=== PATIENT | female | born 1995 | race Caucasian/White ===

== ENCOUNTER 2019-12-22 15:39 | Emergency (ER) | payer OTHER, SELFPAY ==
[2019-12-22 15:51] VITALS: BP 128/78; PULSE 87; RESP 16; TEMP 36.4; O2SAT 95; BMI 21.0
--- NOTE | 2019-12-22 16:56 | US_ITS ---
EXAMINATION: ULTRASOUND PELVIC, COMPLETE CLINICAL INFORMATION: Left-sided pain. COMPARISON: None. TECHNIQUE: Transvaginal: Used to better visualize pelvic structures Transabdominal: Not adequate for complete visualization Spectral Doppler and color Doppler exam was utilized. LMP: Current FINDINGS: UTERUS: Unremarkable. Uterus measures 6.6 x 3.4 x 3.7 cm. The endometrial thickness is 0.2 cm ADNEXA: Ovarian vascularity:Doppler demonstrates both arterial and venous vascular flow in the right and left ovary. No evidence of ovarian torsion. Right Ovary: 2.4 x 2.4 x 1.6 cm. Volume 5 mL Left Ovary: There is a corpus luteum cyst in left ovary measuring 1.6 cm. 4.7 x 1.2 x 1.5 cm. Volume 4 mL Cul-de-sac: No Fluid US/US pelvic complete IMPRESSION: Normal ultrasound of the pelvis.
--- NOTE | 2019-12-22 16:56 | US_ITS ---
EXAMINATION: ULTRASOUND PELVIC, COMPLETE CLINICAL INFORMATION: Left-sided pain. COMPARISON: None. TECHNIQUE: Transvaginal: Used to better visualize pelvic structures Transabdominal: Not adequate for complete visualization Spectral Doppler and color Doppler exam was utilized. LMP: Current FINDINGS: UTERUS: Unremarkable. Uterus measures 6.6 x 3.4 x 3.7 cm. The endometrial thickness is 0.2 cm ADNEXA: Ovarian vascularity:Doppler demonstrates both arterial and venous vascular flow in the right and left ovary. No evidence of ovarian torsion. Right Ovary: 2.4 x 2.4 x 1.6 cm. Volume 5 mL Left Ovary: There is a corpus luteum cyst in left ovary measuring 1.6 cm. 4.7 x 1.2 x 1.5 cm. Volume 4 mL Cul-de-sac: No Fluid US/US pelvic ovarian doppler IMPRESSION: Normal ultrasound of the pelvis.
--- NOTE | 2019-12-22 16:57 | US_ITS ---
EXAMINATION: ULTRASOUND PELVIC, COMPLETE CLINICAL INFORMATION: Left-sided pain. COMPARISON: None. TECHNIQUE: Transvaginal: Used to better visualize pelvic structures Transabdominal: Not adequate for complete visualization Spectral Doppler and color Doppler exam was utilized. LMP: Current FINDINGS: UTERUS: Unremarkable. Uterus measures 6.6 x 3.4 x 3.7 cm. The endometrial thickness is 0.2 cm ADNEXA: Ovarian vascularity:Doppler demonstrates both arterial and venous vascular flow in the right and left ovary. No evidence of ovarian torsion. Right Ovary: 2.4 x 2.4 x 1.6 cm. Volume 5 mL Left Ovary: There is a corpus luteum cyst in left ovary measuring 1.6 cm. 4.7 x 1.2 x 1.5 cm. Volume 4 mL Cul-de-sac: No Fluid US/US transvaginal IMPRESSION: Normal ultrasound of the pelvis.
[2019-12-22] MEDS: 0.9 % Sodium Chloride 1,000 ML 1000 ML IV (17:11)
[2019-12-22 17:17] LABS: MANUAL DIFF FLAG NO
[2019-12-22 17:21] LABS: Basophils Percent Auto 0.3 % (0-2); Eosinophils Absolute Auto 0.2 X10*3/uL (0.0-0.4); Eosinophils Percent Auto 2.7 % (0-4); Hematocrit 35.4 % (37-47); Hemoglobin 10.6 g/dl (12.0-16.0); Imm Gran Abs Auto 0.02 X10*3/uL (0.00-0.03); Imm Gran Pct Auto 0.3 % (0.0-0.4); Lymphocytes Absolute Auto 1.8 X10*3/uL (1.2-4.9); Mean Corpuscular HGB Conc 29.9 g/dl (31.0-35.0); Mean Corpuscular Hemoglobin 22.6 pg (27.0-33.0); Mean Corpuscular Volume 75.5 fL (80-98); Mean Platelet Volume 12.1 fL (9.4-12.3); Monocytes Absolute Auto 0.7 X10*3/uL (0.1-1.2); Monocytes Percent Auto 10.5 % (2-11); Neutrophils Absolute Auto 4.1 X10*3/uL (2.0-8.3); Neutrophils Percent Auto 60.2 % (45-73); Platelet Count 256 X10*3/uL (160-400); Red Blood Count 4.69 X10*6/uL (4.20-5.50); Red Cell Distribution Width 13.6 % (11.0-16.0); White Blood Count 6.7 X10*3/uL (4.8-10.8)
[2019-12-22 17:23] LABS: Glucose Urine UA NEG (NEG); Leukocyte Esterase Urine NEG (NEG); Nitrite Urine NEG (NEG); Specific Gravity - Urine 1.015 (1.005-1.025); Urine Blood 3+ (NEG); Urine Ketones NEG (NEG); Urine Protein NEG (NEG-TRACE)
[2019-12-22 17:43] LABS: Appearance Urine CLEAR; Color Urine YELLOW
[2019-12-22 17:45] LABS: Alanine Aminotransferase 12 U/L (0-31); Albumin Level 4.2 g/dL (3.5-5.0); Alkaline Phosphatase 38 U/L (39-117); Anion Gap 10 (12-20); Aspartate Amino Transferase 19 U/L (5-31); Bilirubin Total 0.5 mg/dL (0.0-1.0); Blood Urea Nitrogen 13 mg/dL (9-16); Calcium 8.7 mg/dL (8.4-10.2); Carbon Dioxide 27 mmol/L (22-29); Chloride 106 mmol/L (96-108); Creatinine Clr Calc Pharmacy 96.6; Estimated Glomerular Filt Rate > 60; Glucose Random 90 mg/dL (60-115); Potassium 4.2 mmol/l (3.3-5.1); Sodium 139 mmol/L (135-145); Total Protein 6.8 g/dL (6.5-8.0)
[2019-12-22 17:49] LABS: Squamous Epithelial Cell Urine 4+ /LPF; WBC Urine 0-2 /HPF (0-4)
[2019-12-22 17:51] LABS: UPreg QC Valid YES; Urine Pregnancy NEGATIVE (NEGATIVE)
[2019-12-22 18:08] VITALS: RESP 16
--- NOTE | 2019-12-22 18:53 | PC.NURSE ---
Report taken from janette Nicolas RN resuming care.
--- NOTE | 2019-12-22 19:06 | PC.NURSE ---
Pt found sitting upright in bed, requesting medication for 8/10 pain to pelvis. Pt inquiring about her U/S results, asking to have her IV removed so she can leave. RETAIL SERVICE TECHNICIAN aware.
[2019-12-22 19:10] VITALS: BP 129/68; PULSE 86; RESP 16; O2SAT 99
[2019-12-22] MEDS: Ketorolac Tromethamine 30 MG/ML VIAL IVPUSH (19:16)
--- NOTE | 2019-12-22 19:16 | PC.NURSE ---
Pt medicated with Toradol per EMAR. Pt requesting IV removed, FAMILY CONSUMER SCIENCE TEACHER aware and agreeable.
--- NOTE | 2019-12-22 19:42 | ED.FEMALEGU ---
HPI - Female Genitourinary General Chief complaint: Vaginal Bleeding Stated complaint: Abd Pain Time Seen by Provider: 12/22/19 16:56 Source: patient Mode of arrival: ambulatory Limitations: no limitations History of Present Illness HPI Narrative: Having pelvic cramping for the past 2 days on her menstrual cycle. States she usually has menstrual cramping but today with a little more intense. MD elicited complaint: pelvic pain Severity: moderate Female Urogenital Radiation: Non-Radiating and Suprapubic Quality of pain: cramping Consistency: intermittent Vaginal discharge: none Vaginal bleeding: none Urinary symptoms: Dysuria Relieving factors: none Associated symptoms: denies other symptoms Treatment prior to arrival: none Sexual activity: No Patient : No Related Data Previous Rx's Medication Instructions Recorded ibuprofen 800 mg PO Q8H PRN #30 tab 12/22/19 Allergies Allergy/AdvReac Type Severity Reaction Status Date / Time No Known Allergies Allergy Verified 12/22/19 16:56 Review of Systems Review of Systems: Constitutional: No Weight loss, No Fever, No Chills, No Night Sweats, No Fatigue, No Malaise ENT/Mouth: No Hearing loss, No Ear Pain, No Nasal Congestion, No Sinus Pain, No Hoarseness, No sore throat, No Rhinorrhea, No Swallowing Difficulty Eyes: No Eye Pain, No Swelling, No Redness, No Foreign Body, No Discharge, No Vision Changes Cardiovascular: No Chest Pain, No SOB, No Dyspnea on Exertion, No Orthopnea, No Edema, No Palpitations Respiratory: No Cough, No Sputum, No Wheezing, No Smoke Exposure, No Dyspnea . Gastrointestinal: No Nausea, No Vomiting, No Diarrhea, No Constipation, + Pelvic pain left side, No Hematochezia, No Melena Genitourinary: no irregular bleeding, No Dysuria, No Urinary Frequency, No Hematuria, No Urinary Incontinence, No Urgency, No Flank Pain, No Urinary Flow Changes, No Hesitancy Musculoskeletal: No joint pain, No Myalgias, No Joint Swelling Skin: No Skin Lesions, No rash Neuro: No Weakness, No Numbness, No Paresthesias, No Loss of Consciousness, No Dizziness, No Headache Psych: No Anxiety/Panic, No Depression Heme/Lymph: No Bruising, No Bleeding,No Lymphadenopathy Endocrine: No Polyuria, No Polydipsia, No Temperature Intolerance Yes all other systems are reviewed and are negative [facility] Past Medical History Attestation statement: The following information was validated with the patient. Social History Social History Alcohol intake: never Smoked in Last 30 Days: No Use of substances other than those prescribed or required for medical reasons: No Advance Directives: No Advance Directives Information Provided: No Physical Exam Vital Signs: Vital Signs: Last Vital Signs Temp 97.6 F 12/22/19 15:51 Pulse 86 12/22/19 19:10 Resp 16 12/22/19 19:10 BP 129/68 12/22/19 19:10 Pulse Ox 99 12/22/19 19:10 Body Mass Index 21.0 Reviewed Const: General: cooperative and healthy appearing; No acute distress or intoxicated appearing Nutritional Appearance: average body habitus Orientation/consciousness: patient oriented x3 HENMT: Head: Yes normal to inspection Ears: hearing grossly normal bilaterally Eyes: General: appearance normal, both eyes and all related structures Visual Worthington: normal visual worthington by confrontation Neck: Neck: Yes normal visual inspection and No tender Thyroid: Thyroid normal Chest: Chest palpation & inspection: normal inspection of the chest Resp: Effort & Inspection: normal respiratory effort Cardio: Jugular venous distension: no JVD GI: Inspection: Yes normal to inspection Percussion: Yes normal to percussion Auscultation: normal bowel sounds : General: Yes no CVA tenderness Back/Spine/Pelvis: Back: no CVA tenderness Skin: General skin exam: no rashes or lesions noted Neuro: General: patient oriented x3 Extrem: General: Yes normal to inspection Course Course Course Narrative: Labs overall stable. UA negative for or infection. H&H stable. Ultrasound no evidence of ovarian cyst/torsion. Pain mostly on the left side. No GI symptoms otherwise. A/P consistent with dysmenorrhea patient will be discharged home with clear precaution return follow-up instructions. Given short course for NSAIDs. Agreeable and stable for discharge. MDM - Female Genitourinary Differential Diagnosis Differential diagnosis: Likely urinary tract infection, ovarian cyst and dysmenorrhea; Unlikely bacterial vaginosis, trichomoniasis, cervicitis, vaginitis, ruptured ovarian cyst, cyst of Bartholin's gland and cystitis Medical Records Attestation: I reviewed the patient's medical records. Lab Data Attestation: I reviewed the patient's lab results. Result diagrams: 12/22/19 17:11 12/22/19 17:11 Labs: Lab Results 12/22/19 12/22/19 12/22/19 Range/Units 17:11 17:11 17:11 WBC 6.7 (4.8-10.8) X10*3/uL RBC 4.69 (4.20-5.50) X10*6/uL Hgb 10.6 L (12.0-16.0) g/dl Hct 35.4 L (37-47) % MCV 75.5 L (80-98) fL MCH 22.6 L (27.0-33.0) pg MCHC 29.9 L (31.0-35.0) g/dl RDW 13.6 (11.0-16.0) % Plt Count 256 (160-400) X10*3/uL MPV 12.1 (9.4-12.3) fL Immature Gran % (Auto) 0.3 (0.0-0.4) % Neut % (Auto) 60.2 (45-73) % Lymph % (Auto) 26.0 (20-40) % Ogle % (Auto) 10.5 (2-11) % Eos % (Auto) 2.7 (0-4) % Baso % (Auto) 0.3 (0-2) % Lymph # (Auto) 1.8 (1.2-4.9) X10*3/uL Ogle # (Auto) 0.7 (0.1-1.2) X10*3/uL Eos # (Auto) 0.2 (0.0-0.4) X10*3/uL Baso # (Auto) 0.0 (0.0-0.2) X10*3/uL Abs Immat Gran (auto) 0.02 (0.00-0.03) X10*3/uL Absolute Neuts (auto) 4.1 (2.0-8.3) X10*3/uL Absolute Nucleated RBC 0.000 (0.0-0.012) X10*3/uL Nucleated RBC % (auto) 0.0 (0.0-0.2) /100WBC Sodium 139 (135-145) mmol/L Potassium 4.2 (3.3-5.1) mmol/l Chloride 106 (96-108) mmol/L Carbon Dioxide 27 (22-29) mmol/L Anion Gap 10 L (12-20) BUN 13 (9-16) mg/dL Creatinine 0.71 (0.5-1.4) mg/dL Estim Creat Clear Calc 96.6 Estimated GFR > 60 Random Glucose 90 (60-115) mg/dL Calcium 8.7 (8.4-10.2) mg/dL Total Bilirubin 0.5 (0.0-1.0) mg/dL AST 19 (5-31) U/L ALT 12 (0-31) U/L Alkaline Phosphatase 38 L (39-117) U/L Total Protein 6.8 (6.5-8.0) g/dL Albumin 4.2 (3.5-5.0) g/dL Urine Color YELLOW Urine Appearance CLEAR Urine pH 7.0 (5.0-8.0) Ur Specific [place] 1.015 (1.005-1.025) Urine Protein NEG (NEG-TRACE) MG/DL Urine Glucose (UA) NEG (NEG) MG/DL Urine Ketones NEG (NEG) MG/DL Urine Blood 3+ H (NEG) Urine Nitrite NEG (NEG) Ur Leukocyte Esterase NEG (NEG) Urine RBC 1-4 (0) /HPF Urine WBC 0-2 (0-4) /HPF Ur Squamous Epith Cells 4+ /LPF Urine Bacteria NONE /LPF Urine Test NEGATIVE (NEGATIVE) Imaging Data Pelvic/ovarian Doppler ultrasound: Radiologist's impression: [place] [id number] Ultrasound Report Signed Patient: Cheryl Soria [facility]#: [id number] : 1995Acct:[id number] Age/Sex: 24 / FADM Date: 12/22/19 Loc: .ED Attending Dr: Ordering Physician: Jose C Ramirez NP Date of Service: 12/22/19 Procedure(s): US pelvic complete Accession Number(s): [id number] cc: Jose C Ramirez NP~ EXAMINATION: ULTRASOUND PELVIC, COMPLETE CLINICAL INFORMATION: Left-sided pain. COMPARISON: None. TECHNIQUE: Transvaginal: Used to better visualize pelvic structures Transabdominal: Not adequate for complete visualization Spectral Doppler and color Doppler exam was utilized. LMP: Current FINDINGS: UTERUS: Unremarkable. Uterus measures 6.6 x 3.4 x 3.7 cm. The endometrial thickness is 0.2 cm ADNEXA: Ovarian vascularity:Doppler demonstrates both arterial and venous vascular flow in the right and left ovary. No evidence of ovarian torsion. Right Ovary: 2.4 x 2.4 x 1.6 cm. Volume 5 mL Left Ovary: There is a corpus luteum cyst in left ovary measuring 1.6 cm. 4.7 x 1.2 x 1.5 cm. Volume 4 mL Cul-de-sac: No Fluid US/US pelvic complete IMPRESSION: Normal ultrasound of the pelvis. Dictated By:GUILLAUME CABRERA MD Signed By:<Electronically signed by GUILLAUME CABRERA MD in OV>12/22/19 1827 DD/ 1656 TD/TT: Loan Collector: CONY Discharge Plan Discharge Clinical Impression: Dysmenorrhea Patient Disposition: Home, Self-Care Instructions: Dysmenorrhea (ED) Prescriptions: New ibuprofen 800 mg tablet 800 mg PO Q8H PRN (Reason: pain) Qty: 30 RF: 0 Referrals: ED Physician,Generic [Physician] - 1 week (Primary care) Pelon Zhao MD [Physician] - 1 week
== END 2019-12-22 19:55 | disposition home or self-care (01) ==
PROVIDERS: Nurse Practitioner Primary Care; Emergency Provider Emergency Medicine
DX: N94.6 Dysmenorrhea, unspecified (principal); R30.0 Dysuria; R10.9 Unspecified abdominal pain; R10.2 Pelvic and perineal pain
CPT/HCPCS: 36415; 76830; 76856; 80053; 81001; 81025; 85025; 93975; 96361; 96374; 99284; J1885

== ENCOUNTER 2024-07-15 15:21 | Emergency (ER) | payer SELFPAY ==
--- OUTSIDE RECORDS SUMMARY | 2024-07-15 17:11 | XMS_ITS | Data Portability ---
Author Organization [place] - [facility] printed circuit boards beveler Wom, GC_Manlius Address [address] [place] [address] Assessment Encounter Date Assessment Date Assessment LastModified by Organization Details LastModified Time 04/23/2023 04/23/2023 Patient tolerated the procedure well. We discussed signs that need medical attention such as bleeding and infection. Again we discussed the 3 year limitation of the device. We discussed common side effects that typically resolve on their own such as bruising and breakthrough bleeding with her cycle She can call back if there are any questions. All questions answered. RTC in Feb for yearly as pap smear will be due or RTC sooner if needed. Not available 04/23/2023 16:47:03 12/10/2023 12/10/2023 Nexplanon palpable in arm Not available 12/10/2023 16:31:39 01/29/2024 01/29/2024 Patient tolerated the procedure well. We discussed signs that need medical attention such as bleeding and infection. We discussed signs which require evaluation like worsening pain/infection She can call back if there are any questions. All questions answered. [email or web address] Not available 01/29/2024 17:10:43 Plan of Treatment Reminders Order Date Submit Date Provider Last Modified By Organization Details Last Modified Time Details Appointments None recorded. Lab test, urine 2023 024 [email or web address] [facility] Marion LIAO [address] [place] [address] [place], , [address], 17:10:57 urinalysis, dipstick 2023 024 [email or web address] 5 [facility] Obfuadn PA, [address] [place] [address], [place], [address], 4 16:33:57 test, urine 2023 024 [email or web address] 5 _[facility] Kaylan PA, [address] [place] [address], [place], [address], 16:47:41 test, urine 2023 024 [email or web address] 5 [facility] Kaylan PA, [address] [place] [address], [place], [address], 13:14:11 Referral None recorded. Procedures None recorded. Surgeries None recorded. Imaging US, pelvis 2023 [email or web address] 5 Not available 13:08:08 Medication Orders Provera 10 mg tablet 2023 [facility]armacy #[id number], [address] [facility] [place], [address], 17:10:58 Sprintec (28) 0.25 mg-0.035 mg tablet 2023 [facility] #[id number], [address] [facility], [place], [address], 17:10:58 metronidazo le 500 mg tablet 2023 [facility]arm[facility] #[id number], [address] [facility], [place], [address], 16:33:26 ibuprofen 800 mg tablet 2023 [facility]Pharmacy #[id number], [address] [facility], [place], [address], 4 16:33:26 Nexplanon 68 mg subdermal implant 2023 024 5 [facility]/Pharmacy #[id number], [address] [facility] [place], [address], 16:47:39 Patient TargetsNo targets recorded. Patient InstructionsNo instructions recorded. Reason for Referral None Reported. Results Created Date Observation Date Name Description Value Unit Range Abnormal Flag Note LastModifiedBy Organization Detail LastModifiedTime 04/04/19 24 04/04/2023 pregn kimberley test, urine HCG negati ve Not Available [address] [place], [address], 04/04/2023 12:02:49 04/23/1904/23/2023 pregn kimberley test, urine HCG negati ve Not Available [address] [place], [address], 04/23/2023 15:35:20 12/10/19 24 12/10/2023 urina lysis , dipst ick Blood Negati ve Not Available [address] [place], [address], 12/10/2023 16:10:02 12/10/19 24 12/10/2023 urina lysis , dipst ick Protein Negati ve Not Available [address] [place], [address], 12/10/2023 16:10:02 12/10/1912/10/2023 urina lysis , dipst ick Nitrite negati ve Not Available [address] [place], [address], 12/10/2023 16:10:02 12/10/19 24 12/10/2023 urina lysis , dipst ick Glucose Negati ve Not Available [address] [place], [address], 12/10/2023 16:10:02 12/10/19 24 12/10/2023 urina lysis , dipst ick Leukocytes Negati ve Not Available [facility] [address] [place], [address], 12/10/2023 16:10:02 12/10/19 24 12/10/2023 urina lysis , dipst ick Appearance Clear Not Available _[facility] [address] [place], [address], 12/10/2023 16:10:02 12/10/19 24 12/10/2023 urina lysis , dipst ick Color Yellow Not Available _[facility] [address] [place], [address], 12/10/2023 16:10:02 01/29/20 24 01/29/2024 pregn kimberley test, urine HCG negati ve Not Available [facility] [address] [place], [address], 01/29/2024 12:26:11 01/03/20 24 US, amber [email or web address] No observ ation record ed. [email or web address] Not Available 2023 13:44:46 Result Notes None recorded. Procedures Surgical History Date Name Laterality Status Provider Name and Address Organization Details Recorded Time 01/29/20 Nexplanon removal_ecw completed Alphonse Stock [facility] printed [employer] be[employer] Wom 01/29/2024 12:26:10 04/23/19 24 Nexplanon insertion completed CLEMENTINE LIGHT MD [address] [place] [address],[address], [place], [address], [facility] printed [employer] be[employer] Wom 04/23/2023 16:46:30 02/20/19 24 Date of Last Pap Smear completed Elisa Mcdonald [facility] printed [employer] be[employer] Wom 04/04/2023 12:00:13 Tonsillectomy completed Janeen Dai [place] - [facility] printed circuit boards be[employer] Wom 04/23/2023 15:39:12 Imaging Results None recorded. Procedure Notes None recorded. Medical Equipment None Reported. Allergies No known drug allergies Medications Name Sig Start Date Stop Date Status Note LastModified by Organization Details LastModified Time tetracycl ine 500 mg capsule TAKE ONE TABLET BY MOUTH FOUR TIMES DAILY FOR TWO WEEKS 04/04 completed Not Available Not Available Not Available amoxicill in 500 mg capsule TAKE ONE CAPSULE BY MOUTH EVERY 8 HOURS FOR 10 DAYS active Not Available Not Available No t Available medroxypr ogesteron e 10 mg tablet Take 1 tablet every day by oral route for 14 days. active Not Available Not Available No t Available promethaz ine-DM 6.25 mg-15 mg/5 mL oral syrup TAKE 5 MLS BY MOUTH 4 TIMES DAILY NEEDED FOR COUGH active Not Available Not Available No t Available doxycycli ne hyclate 100 mg capsule TAKE 1 CAPSULE BY MOUTH IN THE MORNING AND 1 CAPSULE BEFORE BEDTIME active Not Available Not Available No t Available azithromy gillian 250 mg tablet TAKE 2 TABLETS BY MOUTH TODAY, THEN TAKE 1 TABLET DAILY FOR 4 DAYS DIRECTED active Not Available Not Available No t Available ibuprofen 800 mg tablet TAKE 1 TABLET BY MOUTH EVERY 8 HOURS NEEDED FOR PAIN MEDICA ID LIMITS EXCEEDED active Not Available Not Available No t Available fluconazo le 150 mg tablet TAKE 1 TABLET BY MOUTH ONCE EVERY 3 DAYS active Not Available Not Available No t Available clarithro mycin 500 mg tablet TAKE 1 TABLET TWICE DAILY UNTIL FINISHED . 04/04 completed Not Available Not Available Not Available fluconazo le 200 mg tablet TAKE 1 TABLET BY MOUTH IN THE MORNING FOR 3 DAYS active Not Available Not Available No t Available prednison e 20 mg tablet PLEASE SEE ATTACHED FOR DETAILED DIRECTIO NS active Not Available Not Available No t Available metronida zole 500 mg tablet TAKE 1 TABLET BY MOUTH TWICE A DAY FOR 7 DAYS active Not Available Not Available No t Available sulfameth oxazole 800 mg-trimet hoprim 160 mg tablet TAKE 1 TABLET BY MOUTH TWICE A DAY FOR 5 DAYS 04/04 completed Not Available Not Available Not Available peg-elect rolyte solution 420 gram oral solution TAKE 4000 ML(S) BY MOUTH DIRECTED 04/04 completed Not Available Not Available Not Available triamcino lone acetonide 0.1 % topical cream 04/04 completed Not Available Not Available Not Available famotidin e 20 mg tablet TAKE 1 TABLET BY MOUTH IN THE MORNING AND TAKE 1 TABLET AT BEDTIME . DO THIS FOR 7 DAYS. active Not Available Not Available No t Available cephalexi n 500 mg capsule TAKE 1 CAPSULE BY MOUTH EVERY DAY IN THE MORNING AND EVERY DAY AT BEDTIME. DO THIS FOR 10 DAYS active Not Available Not Available No t Available ferrous sulfate 325 mg (65 mg iron) tablet take 1 tablet (325 mg) by oral route 2 times per day 04/04 completed Prescrib ed at [facility] Not Available Not Available Not Available dexametha sone 4 mg tablet TAKE ONE TABLET BY MOUTH DAILY WITH BREAKFAS T FOR 2 DAYS 04/04 completed Not Available Not Available Not Available bismuth subsalicy late 262 mg chewable tablet CHEW AND SWALLOW 1 TABLET 4 TIMES DAILY. 04/04 completed Not Available Not Available Not Available omeprazol e 20 mg capsule,d elayed release TAKE ONE CAPSULE BY MOUTH TWICE DAILY 04/04 completed Not Available Not Available Not Available cefuroxim e axetil 500 mg tablet TAKE 1 TABLET BY MOUTH IN THE MORNING AND 1 TABLET BEFORE BEDTIME. DO THIS FOR 7 DAYS active Not Available Not Available No t Available methylpre dnisolone 4 mg tablets in a dose pack TAKE 6 TABLETS ON DAY 1 DIRECTED ON PACKAGE AND DECREASE BY 1 TAB EACH DAY FOR A TOTAL OF 6 DAYS active Not Available Not Available No t Available albuterol sulfate HFA 90 mcg/actua tion aerosol inhaler INHALE 2 PUFFS INTO THE LUNGS EVERY 4 HOURS NEEDED FOR WHEEZING active Not Available Not Available No t Available ondansetr on 4 mg disintegr ating tablet TAKE 1 TABLET BY MOUTH EVERY 8 HOURS NEEDED FOR NAUSEA active Not Available Not Available No t Available medroxypr ogesteron e 150 mg/mL intramusc ular suspensio n inject 1 millilit er (150 mg) by intramus cular route every 3 months for 84 days 01/21 completed Prescrib ed at [facility] Not Available Not Available Not Available Augmentin 500 mg-125 mg tablet take 1 tablet by oral route every 12 hours for 7 days. 03/28 completed Prescrib ed at Practice Not Available Not Available Not Available naproxen 500 mg tablet TAKE 1 TABLET BY MOUTH IN THE MORNING AND 1 TABLET IN EVENING. TAKE WITH MEALS NEEDED FOR PAIN active Not Available Not Available No t Available nitrofura ntoin monohydra te/macroc rystals 100 mg capsule TAKE ONE CAPSULE BY MOUTH IN THE MORNING AND ONE CAPSULE BEFORE BEDTIME. DO ALL THIS FOR 5 DAYS. active Not Available Not Available No t Available sodium fluoride 1.1 % dental paste BRUSH TWICE A DAY DIRECTED . DO NOT RINSE FOR 30 MINS AFTER USE 04/04 completed Not Available Not Available Not Available Nexplanon 68 mg subdermal implant Inject 1 implant by subcutan eous route. 2023 active Not Available Not Available Not Avai lable Estarylla 0.25 mg-0.035 mg tablet Take 1 tablet every day by oral route. active Not Available Not Available No t Available Vitals Date Recorded Body height Body mass index (BMI) Body weight Heart rate Systolic blood pressure Diastolic blood pressure Provider Name and Address Organization Details Last Updated DateTime 4 157.48 cm 22.1 kg/m2 02175.6 8 g 96 /min 120 mm[Hg] 82 mm[Hg] Elisa [facility] Wom 4 11:58:49 Date Recorded Body height Body mass index (BMI) Body weight Heart rate Systolic blood pressure Diastolic blood pressure Provider Name and Address Organization Details Last Updated DateTime 4 157.48 cm 22.7 kg/m2 07082.4 5 g 76 /min 114 mm[Hg] 69 mm[Hg] Janeen Dai [facility] Wom 4 16:26:48 Date Recorded Body height Body mass index (BMI) Body weight Heart rate Systolic blood pressure Diastolic blood pressure Provider Name and Address Organization Details Last Updated DateTime 4 157.48 cm 22.7 kg/m2 24296.4 5 g 86 /min 124 mm[Hg] 86 mm[Hg] Elisa [facility] printed circuit boards beveler Wom 4 16:09:36 Date Recorded Body height Body mass index (BMI) Body weight Heart rate Systolic blood pressure Diastolic blood pressure Provider Name and Address Organization Details Last Updated DateTime 4 157.48 cm 22.9 kg/m2 96119.4 8 g 91 /min 112 mm[Hg] 82 mm[Hg] Alphonse Stock [facility] printed circuit boards be[employer]er Wom 4 16:21:05 Social History Question Answer Notes LastModified by Organizat ion Details LastModified Time Tobacco Smoking Status Never Smoker Janeen mckinnon, [facility] printed circuit [employer] be[employer]er Wom 04/23/2023 15:39:04 Are You Sexually Active? Yes [email or web address] Information not available 04/23/2023 Sex: Female Functional Status Question Answer Note LastModified by Organizat ion Details LastModified Time Do you use any illicit or recreational drugs? No Information not available 04/23/2023 What is your level of alcohol consumption? None [email or web address] Information not available 04/23/2023 Mental Status None recorded. Family History Nothing Reported. Medical History Condition Response Anxiety/Depression Y Other N Problems N Kidney or Bladder Problems N Thyroid Problems N Lung Disease N Gestational Diabetes N Anemia Y Hematologic disorders N History of STI N Polycystic ovary syndrome N Diabetes N Hepatitis/Liver Disease N Infertility N Sickle Cell N History of abnormal pap N Cancer N [employer] Problems N Asthma N Endometriosis N High Cholesterol N Heart Disease N Miscarriage N Pre-Eclampsia N Hypertension N Osteoporosis N Gynecological History Statement/Question Response Date of Last Pap Smear 02/20/2023 Current Control Method Implant Flow Moderate Date of LMP 01/29/2024 Sexually Active? Y Obstetrics History GPAL:G 1 P 0 0 0 0 Type Value Multiple Births 0 Full Term 0 Induced 0 Spontaneous 0 Premature 0 Living 0 Ectopics 0 Total 1 Past Encounters Encounter ID Performer Location Encounter Start Date Encounter Closed Date Diagnosis/Indication Diagnosis SNOMED-CT Code Diagnosis ICD10 Code Diagnosis Note [id number] CLEMENTINE LIGHT MD [facility] [place] [address] 04/04/2023 11:49:28 04/04/2023 12:50:43 Gynecologic examination 24048052 Z01.419 Reassured that her test here was negative. Menorrhagia 665483020 N9 2.0 Wants to try Nexplanon. Counseled on side effects such as amenorrhea vs irregular bleeding. Pt to fill out insurance form today and return on her next cycle for placement. We discussed it is good for three years. Contracept ion care management 506951644 Z30.9 [id number] CLEMENTINE LIGHT MD [facility] [address] [place] [address] 04/23/2023 16:13:21 05/04/2023 15:44:28 Contraception care management 370917020 Z30.9 [id number] CELMENTINE LIGHT MD [facility] [place] [address] [place] [address] 12/10/2023 15:39:40 12/10/2023 16:46:01 Recurrent urinary tract infection 115099874 N39.0 Suspect interstiti al cystitis based on symptoms. Patient needs urology referral but they do not accept her insurance. She has a new job and will be getting new insurance soon. Recommende d she notify our office when that happens so we can complete a referral. Pain in pelvis 86368104 R10.2 Will obtain [employer] [place] Vaginitis 67487892 N76.0 [id number] CLEMENTINE LIGHT MD [facility] [address] [place] [address] 01/03/2024 16:01:42 01/04/2024 10:33:10 Pain in pelvis 56663254 R10.2 Will obtain [employer] [place] [id number] ARISTEO KOO MD [address] [place] [address] 01/29/2024 16:02:10 01/29/2024 17:06:37 Contraception care management 148200411 Z30.017 Abnormal u terine bleeding 7712616384 9100 N93.9 Health Concerns Section Related Observation LastModified by Organization Detai ls LastModified Time None Recorded Concern Status LastModified by Organization Details LastModified Time None Recorded Advance Directives Directive None Recorded Payers Encounter Date Sequence Insurance Name Policy Number Policy Ng Covered Member ID Ng Member ID Guarantor Name 04/04/2023 1 [facility] [place] (MEDICAID REPLACEMENT - [place]MO) Cheryl Soria [id number] Cheryl Soria 04/23/2023 1 [facility] [place] ([place]ICAID REPLAC[place] - [place]MO) Cheryl Soria [id number] Cheryl Soria 12/10/2023 1 MED[employer]- (MEDICAID) Cheryl Soria [id number] Cheryl Soria 01/03/2024 1 [facility] [place] (MEDICAID REPLACEMENT - HMO) DUC Soria [id number] Cheryl Soria 01/29/2024 1 [facility] (MEDICAID REPLACEMENT - HMO) DUC Soria [id number] Cherly Soria Notes Date Note Type Note Provider Name and Address Organization Details Recorded Time 04/04/2023 text/html Patient presents today to discuss control. At her last visit she decided she wanted to try depo. Her most recent period was heavy and she went to the ER. She was told there not to get the depo until she followed up. She also reports a positive test at home. The test in our office today was negative. Her LMP was 03/24/2023. Her test at the ER was also negative. She thinks she wants to try the Nexplanon. She had this before when she was a teenager but did not keep it very long. CLEMENTINE LIGHT MD [address] [place] [address],[address], [place], [address], [facility] printed circuit boards be[employer]er Wom 04/04/2023 13:03:24 04/23/2023 text/html Patient present today for Nexplanon insertion. She reported no change in her past medical history. She is not currently . We discussed the 3 year limitation of the device. We discussed the risk and benefit of the procedure which include- bleeding, infection, and small risk of migration. All questions answered and she would like to proceed. CLEMENTINE LIGHT MD [address] [place] [address],[address], [place], [address], [facility] printed circuit boards be[employer]er Wom 04/23/2023 16:47:42 12/10/2023 text/html Ms. Soria is here for multiple issues. She endorses arm pain where her Nexplanon is. She also endorses menstrual cramps but does not have a cycle. She also has left sided lower abdominal pain that comes and goes. She has a history of frequent UTIs and pain with urination. Her most recent urine cx did not grow bacteria. She also endorses mood changes, notable anxiety. She says this started after getting her Nexplanon. CLEMENTINE LIGHT MD [address] [place] [address],[address], [place], [address], [facility] - [facility] printed circuit boards beveler Wom 12/10/2023 16:33:26 01/29/2024 text/html Patient presents today for Nexplanon removal. She reported no change in her past medical history. She is not currently . We discussed the 3 year limitation of the device. We discussed the risks and benefits of the procedure which include- bleeding, infection, and small risk of migration. All questions answered and she would like to proceed. ARISTEO KOO MD [address] [place] [address],[address], [place], [address], [facility] - [facility] printed circuit boards beveler Wo 01/29/2024 17:11:16 OBGyn Episode No OBEpisode recorded.
== END 2024-07-15 16:20 | disposition left against medical advice (07) ==
PROVIDERS: Emergency Provider Emergency Medicine Emergency Medical Services
DX: N93.9 Abnormal uterine and vaginal bleeding, unspecified (principal); R10.9 Unspecified abdominal pain; Z53.21 Procedure and treatment not carried out due to patient leaving prior to being seen by health care provider

== ENCOUNTER 2024-07-16 05:36 | Emergency (ER) | payer SELFPAY ==
--- NOTE | ~2024-07-16 | US_ITS ---
EXAMINATION: US LESS THAN 14 WEEKS WITH TRANSVAGINAL HISTORY: first trimester COMPARISON: There are no prior studies available for comparison. TECHNIQUE: Transabdominal and endovaginal real-time 2D saeed-scale ultrasound was performed. FINDINGS: LMP 06/16/2024. Uterus: The uterus is normal in size, measuring 8.3 x 4.3 x 5.3 cm. Myometrium has a normal echotexture. No fibroids are identified. Endometrium: The endometrial stripe measures 15 mm in thickness. A tiny 2 mm anechoic structure is noted adjacent to the endometrium which could represent a gestational sac. If this represents a gestational sac, it corresponds to a gestational age of 4 weeks, 5 days. No yolk sac or pole is seen. Right ovary: The right ovary measures 3.9 x 2.3 x 2.8 cm. There is a 1.0 cm echogenic focus in the right ovary which could represent a hemorrhagic corpus luteum. Left ovary: The left ovary measures 1.5 x 1.6 x 1.1 cm. The left ovary is normal in size and echotexture. Pelvic fluid: There is a small amount of fluid anteriorly.. US/US OB pelvic and transvaginal IMPRESSION: Tiny 2 mm anechoic structure adjacent to the endometrial stripe which could represent a gestational sac of estimated gestational age 4 weeks, 5 days. No yolk sac or pole is identified. Correlation with beta hCG levels and follow-up ultrasound are recommended. Electronically signed by: Sesar Engel MD 07/16/2024 10:48 AM EDT
[2024-07-16 05:42] VITALS: BP 121/90; PULSE 79; RESP 16; TEMP 36.5; O2SAT 99; BMI 22.9
[2024-07-16 06:07] LABS: MANUAL DIFF FLAG NO
[2024-07-16 06:08] LABS: UPreg QC Valid YES; Urine Pregnancy POSITIVE (NEGATIVE)
[2024-07-16 06:09] LABS: Appearance Urine Clear; Color Urine Yellow; Glucose Urine UA Negative (Negative); Leukocyte Esterase Urine Negative (Negative); Nitrite Urine Negative (Negative); Specific Gravity - Urine 1.025 (1.005-1.025); Urine Blood Negative (Negative); Urine Ketones Negative (Negative); Urine Protein Negative (Neg-Trace)
[2024-07-16 06:12] LABS: Basophils Percent Auto 0.6 % (0-2); Eosinophils Absolute Auto 0.2 X10*3/uL (0.0-0.4); Eosinophils Percent Auto 2.4 % (0-4); Hemoglobin 10.5 g/dl (12.0-16.0); Imm Gran Abs Auto 0.01 X10*3/uL (0.00-0.03); Imm Gran Pct Auto 0.1 % (0.0-0.4); Lymphocytes Absolute Auto 2.7 X10*3/uL (1.2-4.9); Lymphocytes Percent Auto 38.5 % (20-40); Mean Corpuscular HGB Conc 31.8 g/dl (31.0-35.0); Mean Corpuscular Volume 72.2 fL (80.0-98.0); Mean Platelet Volume 11.5 fL (9.4-12.3); Monocytes Absolute Auto 0.8 X10*3/uL (0.1-1.2); Monocytes Percent Auto 11.8 % (2-11); Neutrophils Absolute Auto 3.3 x10*3/uL (2.0-8.3); Neutrophils Percent Auto 46.6 % (45-73); Platelet Count 266 X10*3/uL (160-400); Red Blood Count 4.57 X10*6/uL (4.20-5.50); Red Cell Distribution Width 13.9 % (11.0-16.0); White Blood Count 7.1 X10*3/uL (4.8-10.8)
[2024-07-16 06:23] LABS: Alanine Aminotransferase 10 U/L (0-31); Alkaline Phosphatase 36 U/L (39-117); Anion Gap 9 (12-20); Aspartate Amino Transferase 19 U/L (5-31); Bilirubin Total 0.3 mg/dL (0.0-1.0); Blood Urea Nitrogen 17 mg/dL (9-16); Calcium 8.4 mg/dL (8.4-10.2); Carbon Dioxide 24 mmol/L (22-29); Chloride 107 mmol/L (96-108); Creatinine Clr Calc Pharmacy 109.4; Estimated Glomerular Filt Rate > 60; Glucose Random 90 mg/dL (60-115); Potassium 3.8 mmol/L (3.3-5.1); Sodium 136 mmol/L (135-145); Total Protein 6.5 g/dL (6.5-8.0)
[2024-07-16 07:31] LABS: HCG Quantitative 1308 mIU/mL
--- NOTE | 2024-07-16 07:43 | PC.NURSE ---
Assumed care of this pt, endorsing 8/10 pelvic cramping. Spotting resolved yesterday, denies clots. , no hx complications. Skin pwd, resp even unlaboured. Awaiting eval by ED provider.
--- NOTE | 2024-07-16 08:12 | ED_ITS ---
HPI - Abdominal Pain General Chief Complaint: Abdominal Pain Stated Complaint: with cramping and spotting Time Seen by Provider: 07/16/24 08:02 Source: patient Mode of arrival: ambulatory Limitations: no limitations History of Present Illness ED Provider: HPI narrative: , positive test 5 days ago, has been having abdominal cramps, and vaginal bleeding and spotting, since the cramping started 4 or 5 days ago she has went through 3 pads and, no history of STIs, no concern for STI, currently here from [place] where she will be leaving [place] does not have health insurance or follow-up. Prior unremarkable, not on prenatals at this time. Otherwise reports to be healthy, no vaginal rashes, no discharge no ongoing bleeding at this time. Related Data Previous Rx's ?Medication ?Instructions ?Recorded ibuprofen 800 mg tablet 800 mg PO Q8H PRN pain #30 tabs 12/22/19 Allergies Allergy/AdvReac Type Severity Reaction Status Date / Time No Known Allergies Allergy Verified 07/16/24 05:45 Review of Systems Constitutional: Reports as per [facility] Social History Social History Alcohol intake: never Smoked in Last 30 Days: No Use of substances other than those prescribed or required for medical reasons: Yes Substance Use Type: Marijuana Advance Directives: No Do you have a plan to hurt others: No Plan Patient : Yes Physical Exam ED Vital Signs: Vital Signs - 24 hr 07/16/24 05:42 07/16/24 08:47 Temperature 97.7 F 97.7 F Pulse Rate 79 83 Respiratory Rate 16 18 Blood Pressure 121/90 H 139/91 H Pulse Oximetry 99 100 Oxygen Delivery Method Room Air Room Air BMI result Body Mass Index 22.9 Const Other: * Gen: ?Overall well-appearing patient * CV: RRR, no obvious murmurs appreciated * Resp: ?No wheezing rales rhonchi no stridor moving air well * Abd: ?Bowel sounds are present, left lower quadrant tenderness, mild, no rebound no rigidity. * : I deferred on pelvic exam as patient is not currently bleeding and I did not feel that it is going to contribute to her management * Skin: Warm, dry, intact, * Neuro: ?Alert and oriented x3, moving upper and lower extremities symmetrically, no obvious facial asymmetry noted Medical Decision Making Medical Decision Making [facility] Narrative: Patient is presenting with cramping, hCG is in 14 100s, maybe too early to tell if she has not tried uterine we will obtain an ultrasound, fairly benign abdominal exam slight left lower quadrant tenderness, ruled out for ectopic is the primary consideration, another consideration is early with implantation bleeding, threatened miscarriage, I deferred on pelvic exam I did not feel that in the patient who is not currently having any vaginal bleeding or vaginal discharge that this would be contributory to her management, she has had no other trauma or rashes that she describes otherwise well- appearing. 11:18 patient expressed interest in at elective termination of , she was provided with resources, I did discuss with her ultrasound finding and see my discharge instructions Differential Diagnosis Differential Diagnoses: The differential diagnosis associated with the presentation includes Threatened miscarriage, ectopic , early , tubo-ovarian abscess, ovarian torsion, Admission/Observation Consideration of admission/observation: Escalation of care including admission/observation considered Lab Data [facility] Lab Attestation statement: I reviewed the patient's lab results. 07/16/24 06:00 07/16/24 06:00 Labs: Lab Results 07/16/24 Range/Units 06:00 WBC 7.1 (4.8-10.8) X10*3/uL RBC 4.57 (4.20-5.50) X10*6/uL Hgb 10.5 L (12.0-16.0) g/dl Hct 33.0 L (37.0-47.0) % MCV 72.2 L (80.0-98.0) fL MCH 23.0 L (27.0-33.0) pg MCHC 31.8 (31.0-35.0) g/dl RDW 13.9 (11.0-16.0) % Plt Count 266 (160-400) X10*3/uL MPV 11.5 (9.4-12.3) fL Immature Gran % (Auto) 0.1 (0.0-0.4) % Neut % (Auto) 46.6 (45-73) % Lymph % (Auto) 38.5 (20-40) % [place] % (Auto) 11.8 H (2-11) % Eos % (Auto) 2.4 (0-4) % Baso % (Auto) 0.6 (0-2) % Lymph # (Auto) 2.7 (1.2-4.9) X10*3/uL [place] # (Auto) 0.8 (0.1-1.2) X10*3/uL Eos # (Auto) 0.2 (0.0-0.4) X10*3/uL Baso # (Auto) 0.0 (0.0-0.2) X10*3/uL Abs Immat Gran (auto) 0.01 (0.00-0.03) X10*3/uL Absolute Neuts (auto) 3.3 (2.0-8.3) x10*3/uL Absolute Nucleated RBC 0.000 (0.0-0.012) X10*3/uL Nucleated RBC % (auto) 0.0 (0.0-0.2) /100WBC Sodium 136 (135-145) mmol/L Potassium 3.8 (3.3-5.1) mmol/L Chloride 107 (96-108) mmol/L Carbon Dioxide 24 (22-29) mmol/L Anion Gap 9 L (12-20) BUN 17 H (9-16) mg/dL Creatinine 0.60 (0.5-1.4) mg/dL Estim Creat Clear Calc 109.4 Estimated GFR > 60 Random Glucose 90 (60-115) mg/dL Calcium 8.4 (8.4-10.2) mg/dL Total Bilirubin 0.3 (0.0-1.0) mg/dL AST 19 (5-31) U/L ALT 10 (0-31) U/L Alkaline Phosphatase 36 L (39-117) U/L Total Protein 6.5 (6.5-8.0) g/dL Albumin 4.0 (3.5-5.0) g/dL Beta HCG, Quant 1308 mIU/mL Urine Color Yellow Urine Appearance Clear Urine pH 6.0 (5.0-9.0) Ur Specific [place] 1.025 (1.005-1.025) Urine Protein Negative (Neg-Trace) mg/dL Urine Glucose (UA) Negative (Negative) mg/dL Urine Ketones Negative (Negative) mg/dL Urine Blood Negative (Negative) Urine Nitrite Negative (Negative) Ur Leukocyte Esterase Negative (Negative) Urine Test POSITIVE H (NEGATIVE) Radiology Impression Radiologist Impression: Tiny 2 mm anechoic structure adjacent to the endometrial stripe which could represent a gestational sac of estimated gestational age 4 weeks, 5 days. No yolk sac or pole is identified. Correlation with beta hCG levels and follow-up ultrasound are recommende Medications Administered Discontinued Medications Generic Name Dose Route Start Last Admin Trade Name Freq PRN Reason Stop Dose Admin Acetaminophen 975 mg 07/16/24 08:12 07/16/24 08:37 Acetaminophen 325 Mg Tablet PO 07/16/24 08:13 975 mg ONCE ONE Administration Discharge Plan Discharge Clinical Impression: Vaginal spotting Patient Disposition: Home, Self-Care Additional Instructions: Your blood work, urinalysis reassuring, ultrasound revealed likely early 4 weeks and 5 days correlates to your hCG levels Worsening symptoms such as pain bleeding come back to the ER, you may need repeat hCG levels to make sure they are trending up and you do not have ectopic which does not appear to be so based on your exam your workup and the ultrasound, as far as elective termination of you already have a number and made an appointment. If you decide to keep the please make sure to start vitamins and make sure you have OB follow up. Never hesitate to come back to the ER for any worsening issues or concerns. Prescriptions: No Action ibuprofen 800 mg tablet 800 mg PO Q8H PRN (Reason: pain) Qty: 30 0RF Print Language: Croatian
[2024-07-16] MEDS: Acetaminophen 325 MG TABLET 975 MG PO (08:37)
[2024-07-16 08:47] VITALS: BP 139/91; PULSE 83; RESP 18; TEMP 36.5; O2SAT 100
--- NOTE | 2024-07-16 09:06 | PC.NURSE ---
Report received. Taken over care at this time.
[2024-07-16 11:29] VITALS: BP 130/78; PULSE 89; RESP 18; TEMP 36.7; O2SAT 99
== END 2024-07-16 11:30 | disposition home or self-care (01) ==
PROVIDERS: Emergency Provider Emergency Medicine
DX: O20.9 Hemorrhage in early pregnancy, unspecified (principal); Z3A.01 Less than 8 weeks gestation of pregnancy
CPT/HCPCS: 36415; 76801; 76817; 80053; 81003; 81025; 84702; 85025; 99284

== ENCOUNTER → 2024-07-16 08:03 | Outpatient (BNV) | payer MEDICAID, SELFPAY | PROVIDERS: Emergency Provider Emergency Medicine; Visit Provider Radiology Diagnostic Radiology | DX: Z3A.01 Less than 8 weeks gestation of pregnancy (principal) | CPT/HCPCS: 76801; 76817 ==